=== PATIENT | male | born 2005 | race Two or more races ===

== ENCOUNTER 2025-06-01 15:53 | Emergency (ER) | payer MEDICAID, SELFPAY ==
--- NOTE | ~2025-06-01 | XR_ITS ---
EXAMINATION: XR FOOT, LEFT CLINICAL INFORMATION: ankle eversion COMPARISON: None available. TECHNIQUE: AP, lateral, and oblique views of the left foot. FINDINGS: There is a nondisplaced avulsion fracture involving the proximal base of the fifth metatarsal tuberosity extending to the proximal margin of the tarsal metatarsal joint. No other fracture or deformity is identified. XR/XR foot LT min 3V IMPRESSION: Nondisplaced avulsion fracture involving the fifth metatarsal tuberosity tip. Electronically signed by: Nikunj Saucedo MD 06/01/2025 05:47 PM EST
--- NOTE | ~2025-06-01 | XR_ITS ---
EXAMINATION: XR ANKLE, left CLINICAL INFORMATION: ankle eversion , fracture COMPARISON: None available. TECHNIQUE: AP, lateral, and mortise views lower extremity joint, ankle. FINDINGS: There is an avulsion fracture involving the inferior tip of the lateral malleolus. There is adjacent lateral soft tissue swelling. Incidental note is made of an os trigonum. Ankle mortise is congruent. There is no widening of the syndesmosis. Talar dome is intact. There are no calcaneal enthesophyte(s). XR/XR ankle LT min 3V IMPRESSION: There is an avulsion fracture involving the inferior tip of lateral malleolus and adjacent soft tissue swelling. Electronically signed by: Nikunj Saucedo MD 06/01/2025 05:29 PM EST
[2025-06-01 15:58] VITALS: BP 145/74; PULSE 105; RESP 18; TEMP 36.7; O2SAT 97; BMI 39.4
--- NOTE | 2025-06-01 16:03 | ED_ITS ---
HPI - Extremity Injury (Lower) General Chief Complaint: Extremity Injury, Lower Stated Complaint: left ankle injury Time Seen by Provider: 06/01/25 16:17 Source: patient, RN notes reviewed and old records reviewed Mode of arrival: ambulatory Limitations: no limitations History of Present Illness ED Provider: Anitra BHAT Narrative: 20-year-old male presents for evaluation of left ankle and foot pain pain He is playing basketball just prior to arrival. He came awkwardly and describes an inversion injury. Has been unable to bear weight without significant pain. He has pain to the lateral foot and ankle his pain is 7/10 Related Data Allergies Allergy/AdvReac Type Severity Reaction Status Date / Time No Known Allergies Allergy Verified 06/01/25 16:01 Review of Systems Constitutional: Constitutional: Denies body ache(s), Denies chills and Denies fever(s) Musculoskeletal: Musculoskeletal: Reports arthralgias, Reports joint swelling and Reports limited range of motion PMFSH Social History Social History Unable to assess alcohol history related to: Unknown Smoked in Last 30 Days: No Use of substances other than those prescribed or required for medical reasons: Unknown Advance Directives: No Advance Directives Information Provided: Yes Do you have a plan to hurt others: No Plan Physical Exam Vital Signs: Vital Signs: Last Vital Signs Temp 98.1 F 06/01/25 15:58 Pulse 105 H 06/01/25 15:58 Resp 18 06/01/25 15:58 BP 145/74 H 06/01/25 15:58 Pulse Ox 97 06/01/25 15:58 BMI result Body Mass Index 39.4 Const: General: healthy appearing, comfortable, no acute distress, alert and awake Nutritional Appearance: well nourished Orientation/consciousness: patient oriented x3 HEENT: Head: Yes normocephalic and Yes atraumatic Eyes: Eyelids: Yes eyelids normal Conjunctivae: conjunctivae normal Sclerae: sclerae normal Corneas: corneas normal Pupils: Equal, round and reactive pupils present EOM: EOMs intact bilaterally Neck: Neck: Yes full ROM Resp: Effort & Inspection: normal respiratory effort, able to speak in complete sentences and not labored Skin: General skin exam: elasticity normal Neuro: General: patient oriented x3 Cranial nerves: Yes Equal, round and reactive pupils present and Yes Bilaterally intact EOM present Cognition (Neuro): normal cognition Extrem: Other: there is edema to the left lateral malleolus and left lateral mid foot. Both areas are tender to palpation without any obvious palpable deformities. Distal sensation and capillary refill remains intact. There was no tenderness over the Achilles Course Course Course Narrative: This is a Rapid Medical Examination (RME) performed by Alex Dixon PA-C in triage. Full HPI, ROS, assessment and treatment plan per primary provider in the Main ED. Hx: 20 yo m here for eval of left ankle/foot pain s/p eversion injury when he came down on the ankle while playing basket ball. bearing weight on LLE causes pain. no other injury. Plan: xrs Medications Administered Discontinued Medications Generic Name Dose Route Start Last Admin Trade Name Freq PRN Reason Stop Dose Admin Ibuprofen 800 mg 06/01/25 16:22 06/01/25 16:28 Ibuprofen 800 Mg Tablet PO 06/01/25 16:23 800 mg ONCE ONE Administration Medical Decision Making Medical Decision Making MDM Narrative: 20-year-old male presents for evaluation after a fall. He was playing basketball and inverted his left ankle and foot. Plan for x-ray of the left foot and ankle as he has edema with tenderness to the foot and ankle. He will be treated with ibuprofen and was given an ice pack. The patient denies any pain has no other objective findings Differential Diagnosis Differential Diagnoses: The differential diagnosis associated with the presentation includes ankle sprain Contusion Ankle fracture Foot fracture Independent Interpretation I performed an independent interpretation of an: Plain X-Ray Interpretation: small avulsion fracture of the lateral malleolus. Also a fracture of the base of the 5th metatarsal. Radiology Impression Discussion of test interpretation with radiology: I have reviewed the radiologist's reading. Radiologist Impression: FINDINGS: There is a nondisplaced avulsion fracture involving the proximal base of the fifth metatarsal tuberosity extending to the proximal margin of the tarsal metatarsal joint. No other fracture or deformity is identified. XR/XR foot LT min 3V IMPRESSION: Nondisplaced avulsion fracture involving the fifth metatarsal tuberosity tip. FINDINGS: There is an avulsion fracture involving the inferior tip of the lateral malleolus. There is adjacent lateral soft tissue swelling. Incidental note is made of an os trigonum. Ankle mortise is congruent. There is no widening of the syndesmosis. Talar dome is intact. There are no calcaneal enthesophyte(s). XR/XR ankle LT min 3V IMPRESSION: There is an avulsion fracture involving the inferior tip of lateral malleolus and adjacent soft tissue swelling. Electronically signed by: Nikunj Saucedo MD 06/01/2025 05:29 PM [facility] Discharge Plan Discharge Clinical Impression: Ankle fracture, Foot fracture, left Patient Disposition: Home, Self-Care Instructions: Ankle Fracture (ED), Foot Fracture in Adults (ED) Additional Instructions: You have a subtle avulsion fracture to the left ankle and a small fracture to the 5th metatarsal. These should both heal well without surgery. You should still folow up with orthopedics, and rest, ice, elevate the leg. You Ibuprofen and Tylenol as needed for pain Referrals: [facility] [place] Orthopedic Surgeons [Provider Group] Referral Note: Left lateral malleolus avulsion fracture. Left 5th metatarsal fracture Print Language: Beninese
[2025-06-01 18:09] VITALS: BP 127/62; PULSE 102; RESP 16; TEMP 36.6; O2SAT 99
[2025-06-01 18:27] VITALS: BP 127/62; PULSE 102; RESP 16; TEMP 36.6; O2SAT 99
== END 2025-06-01 18:28 | disposition home or self-care (01) ==
PROVIDERS: Emergency Provider Emergency Medicine
DX: S82.62XA Displaced fracture of lateral malleolus of left fibula, initial encounter for closed fracture (principal); S92.352A Displaced fracture of fifth metatarsal bone, left foot, initial encounter for closed fracture; X50.1XXA Overexertion from prolonged static or awkward postures, initial encounter; Y93.67 Activity, basketball; Y92.9 Unspecified place or not applicable; Y99.9 Unspecified external cause status
CPT/HCPCS: 73610; 73630; 99283; 99284

== ENCOUNTER → 2025-06-01 16:01 | Outpatient (BNV) | payer MEDICAID, SELFPAY | PROVIDERS: Emergency Provider Emergency Medicine; Visit Provider Radiology Diagnostic Radiology | DX: S92.355A Nondisplaced fracture of fifth metatarsal bone, left foot, initial encounter for closed fracture (principal); S82.62XA Displaced fracture of lateral malleolus of left fibula, initial encounter for closed fracture | CPT/HCPCS: 73610; 73630 ==

== ENCOUNTER 2025-06-07 09:07 | Outpatient (AMB) | payer MEDICAID, SELFPAY ==
--- NOTE | 2025-06-07 09:14 | MHC.OFFVIS ---
Vital Signs 06/07/25 09:16 Height 6 ft 1 in Weight 299 lb BMI 39.4 Intake Visit Reasons: Ankle fracture, Foot fracture, left Intake Note: Kenyon is a 20 year old male who presents today as a new patient for an evaluation of his left ankle and foot fracture. Patient reports injury occurred while he was playing basketball sometime last week. He was seen at [facility] [place] ED where he was provided with cam boot, crutches, and prescribed ibuprofen. Patient reports he is able to movie his ankle without experiencing any pain. He has no previous medical history of sprains or fractures. Allergies No Known Allergies Allergy (Verified 06/07/25 09:16) HPI HPI Ankle fracture, Foot fracture, left: Details: The patient is a 20-year-old male presenting for left foot injury (DOI: 06/01/2025). Patient states he was playing basketball and then came down awkwardly and twisted his ankle. He was unable to weightbear afterwards and had a lot of pain. He was seen in the emergency room and diagnosed with an ankle and a foot fracture. It was discharged in a cam boot. The patient states that since then, he has not had much pain. He state he has still been playing basketball since his injury. Social History: - The patient is employed in [employer] - The patient engages in recreational basketball, which may have contributed to the injury. Review of Systems Const All systems reviewed & are unremarkable except as noted in HPI and below Physical Exam Vital Signs: BMI result Body Mass Index 39.4 Extrem Other: *Bilateral Lower Extremity Focused Foot/Ankle Exam Vascular: DP/PT 2/4, CFT<3s to digits, TG warm to cool, moderate left lateral foot and ankle edema, pedal hair present Derm: Moderate Ecchymosis present to the left lateral foot and ankle. Neuro: Protective sensation grossly intact to bilateral lower extremities. Negative Tinel sign to the intermediate dorsal cutaneous nerve. Msk: Mild pain on palpation along the distal tip of the fibula No Pain on palpation along the deltoid ligament left ankle No Pain on palpation along the syndesmosis left ankle Mild pain on palpation of the 5th metatarsal base Deformities: No evidence of hammertoes, bunions, Charcot changes, or other structural abnormalities. Gait: Partial Weight-bearing in Cam boot Office Procedures AMB Podiatry Dressing Details of Procedure: Procedure: Strapping of the foot/ankle Indication: left lower extremity ankle and 5th metatarsal fracture Description: A compression wrap was applied using 3in webril cast padding and 4in Issa bandage with the ankle held in neutral position. Tolerance: Patient tolerated procedure well, no immediate complications. 44006 - Multi-layer compressive dressing Procedure code (CPT) selection complete Results Reviewed Results Reviewed: Podiatry X-ray Read: 06/01/2025 X-ray left ankle 3 views (AP, Mortise, Lateral) reviewed which shows minimally displaced avulsion fracture of the distal fibula. Medial clear space is normal. Tibiotalar joint appears within normal limits. No signs of OCD lesions. I personally reviewed the imaging and my findings are listed above. Podiatry X-ray Read: 06/01/2025 X-ray left foot 3 views (AP, MO, Lateral) reviewed which shows nondisplaced avulsion fracture of the 5th metatarsal base, extra-articular. I personally reviewed the imaging and my findings are listed above. Assessment & Plan Assessment & Plan (1) Fractured lateral malleolus: Code(s): S82.63XA - Displaced fracture of lateral malleolus of unspecified fibula, initial encounter for closed fracture Category: Medical Qualifiers: Encounter type: initial encounter Fracture type: closed Fracture alignment: nondisplaced Laterality: left Qualified Code(s): S82.65XA - Nondisplaced fracture of lateral malleolus of left fibula, initial encounter for closed fracture Plan: Reviewed left ankle x-rays with the patient. Applied Jason compressive dressing (Webril, Issa) Continue weight-bearing as tolerated in the cam boot at all times other than when sleeping. Work note was dispensed. Continue rest, ice, compression, and elevation. Instructed to avoid sports in all at high impact activities. Follow up in 3 weeks with new x-ray (2) Fracture of 5th metatarsal: Code(s): S92.353A - Displaced fracture of fifth metatarsal bone, unspecified foot, initial encounter for closed fracture Category: Medical Qualifiers: Encounter type: initial encounter Fracture type: closed Fracture alignment: nondisplaced Laterality: left Qualified Code(s): S92.355A - Nondisplaced fracture of fifth metatarsal bone, left foot, initial encounter for closed fracture Plan: Continue weight-bearing in cam boot. Orders: Orders AMB Podiatry Dressing Today S82.63XA - Displaced fracture of lateral malleolus of unspecified fibula, initial encounter for closed fracture, S92.352A - Displaced fracture of fifth metatarsal bone, left foot, initial encounter for closed fracture Coding Level of Care Code New Pt Level 4 (79818) Diagnoses Closed nondisplaced fracture of lateral malleolus of left fibula, initial encounter S82.65XA Encounter type: initial encounter Fracture type: closed Fracture alignment: nondisplaced Laterality: left Closed nondisplaced fracture of fifth metatarsal bone of left foot, initial encounter S92.355A Encounter type: initial encounter Fracture type: closed Fracture alignment: nondisplaced Laterality: left CPT Codes Podiatry Dressing - CPT: 87342 - Multi-layer compressive dressing ([id number]) Time Spent (min) 30
[2025-06-07 09:16] VITALS: BMI 39.4
== END 2025-06-07 09:39 | disposition home or self-care (01) ==
LOC: HO.HPODS 09:07
PROVIDERS: Visit Provider Student in an Organized Health Care Education/Training Program
DX: S82.65XA Nondisplaced fracture of lateral malleolus of left fibula, initial encounter for closed fracture (principal); S92.355A Nondisplaced fracture of fifth metatarsal bone, left foot, initial encounter for closed fracture
CPT/HCPCS: 29581; 99204

== ENCOUNTER → 2025-06-07 09:07 | Outpatient (BNVA) | payer MEDICAID, SELFPAY | PROVIDERS: Visit Provider Student in an Organized Health Care Education/Training Program | DX: S82.65XA Nondisplaced fracture of lateral malleolus of left fibula, initial encounter for closed fracture (principal); S92.355A Nondisplaced fracture of fifth metatarsal bone, left foot, initial encounter for closed fracture; Y93.67 Activity, basketball; Y92.310 Basketball court as the place of occurrence of the external cause | CPT/HCPCS: 29581; 99202 ==

== ENCOUNTER 2025-06-28 09:06 | Outpatient (AMB) | payer MEDICAID, SELFPAY ==
[2025-06-28 09:27] VITALS: BMI 39.4
--- NOTE | 2025-06-28 09:27 | A.OFFVIS_ITS ---
Vital Signs 06/28/25 09:27 Height 6 ft 1 in Weight 299 lb BMI 39.4 Intake Visit Reasons: Left ankle x-rays Intake Note: Kenyon is a 20 year old male who presents today as a follow up for xrays of left ankle. Patient states he is doing well with no further concerns at this time. Allergies No Known Allergies Allergy (Verified 06/07/25 09:16) HPI HPI Left ankle x-rays: Details: The patient is a 20-year-old male returning for 3 week follow up for left 5th metatarsal and distal fibula avulsion fracture. He states he has been mostly wearing his Cam boot except when driving. Not experiencing any pain. History: Patient states he was playing basketball and then came down awkwardly and twisted his ankle. He was unable to weight-bear afterwards and had a lot of pain. Social History: - The patient is employed in [employer] - The patient engages in recreational basketball, which may have contributed to the injury. Review of Systems Const All systems reviewed & are unremarkable except as noted in HPI and below Physical Exam Vital Signs: BMI result Body Mass Index 39.4 Extrem Other: *Bilateral Lower Extremity Focused Foot/Ankle Exam Vascular: DP/PT 2/4, CFT<3s to digits, TG warm to cool, Mild left lateral foot and ankle edema, pedal hair present Derm: Moderate Ecchymosis present to the left lateral foot and ankle. Neuro: Protective sensation grossly intact to bilateral lower extremities. Negative Tinel sign to the intermediate dorsal cutaneous nerve. Msk: No pain on palpation along the distal tip of the fibula No Pain on palpation along the deltoid ligament left ankle No Pain on palpation along the syndesmosis left ankle No pain on palpation of the 5th metatarsal base Deformities: No evidence of hammertoes, bunions, Charcot changes, or other structural abnormalities. Gait: Weight-bearing in sneakers Assessment & Plan Assessment & Plan (1) Fractured lateral malleolus: Code(s): S82.63XA - Displaced fracture of lateral malleolus of unspecified fibula, initial encounter for closed fracture Category: Medical Qualifiers: Encounter type: initial encounter Fracture alignment: nondisplaced Fracture type: closed Laterality: left Qualified Code(s): S82.65XA - Nondisplaced fracture of lateral malleolus of left fibula, initial encounter for closed fracture Plan: * Instructed patient to receive his left ankle and foot x-rays today. We will review them with him afterwards. * Dispensed lace-up ankle brace to transition to once cleared. Explained he will likely need to ambulate in a lace-up ankle brace for 2-4 weeks. * No high impact activities for 1 more month. * Follow up in 1 month. (2) Fracture of 5th metatarsal: Code(s): S92.353A - Displaced fracture of fifth metatarsal bone, unspecified foot, initial encounter for closed fracture Category: Medical Qualifiers: Encounter type: initial encounter Fracture alignment: nondisplaced Fracture type: closed Laterality: left Qualified Code(s): S92.355A - Nondisplaced fracture of fifth metatarsal bone, left foot, initial encounter for closed fracture Plan: * Follow up 1 month Coding Level of Care Code Est Pt Level 3 (85418) Diagnoses Closed nondisplaced fracture of lateral malleolus of left fibula, initial encounter S82.65XA Encounter type: initial encounter Fracture alignment: nondisplaced Fracture type: closed Laterality: left Closed nondisplaced fracture of fifth metatarsal bone of left foot, initial encounter S92.355A Encounter type: initial encounter Fracture alignment: nondisplaced Fracture type: closed Laterality: left Time Spent (min) 20
== END 2025-06-28 09:52 | disposition home or self-care (01) ==
LOC: HO.HPODS 09:07
PROVIDERS: Visit Provider Student in an Organized Health Care Education/Training Program
DX: S82.65XA Nondisplaced fracture of lateral malleolus of left fibula, initial encounter for closed fracture (principal); S92.355A Nondisplaced fracture of fifth metatarsal bone, left foot, initial encounter for closed fracture
CPT/HCPCS: 99213

== ENCOUNTER → 2025-06-28 09:06 | Outpatient (BNVA) | payer OTHER, SELFPAY | PROVIDERS: Visit Provider Student in an Organized Health Care Education/Training Program | DX: S82.65XA Nondisplaced fracture of lateral malleolus of left fibula, initial encounter for closed fracture (principal); S92.355A Nondisplaced fracture of fifth metatarsal bone, left foot, initial encounter for closed fracture; W18.39XA Other fall on same level, initial encounter; Y93.67 Activity, basketball; Y92.9 Unspecified place or not applicable; Y99.8 Other external cause status | CPT/HCPCS: 99212 ==